=== PATIENT | male | born 1970 | race Caucasian/White ===

== ENCOUNTER → 2023-08-01 | Day surgery (SDC) | payer BC ==
[~2023-08-01] MED LIST: Ketamine 200 MG/20 ML MDV ONE; Lactated Ringers 1,000 ML IV SCH; Midazolam 1 MG/ML 2 ML SDV ONE; Phenylephrine 1% 10 MG/ML SDV ONE; Propofol 200 MG/20 ML SDV ONE; fentaNYL 50 MCG/ML SDV ONE
== END ==
LOC: CC.SDS 10:50
PROVIDERS: ATTEND Family Medicine
DX: D12.5 Benign neoplasm of sigmoid colon (principal); K63.5 Polyp of colon; K21.9 Gastro-esophageal reflux disease without esophagitis; I10 Essential (primary) hypertension; K59.00 Constipation, unspecified; Z86.16 Personal history of COVID-19; Z79.899 Other long term (current) drug therapy
CPT/HCPCS: 00811; J2250; J2371; J2704; J3010; J3490; J7120

== ENCOUNTER 2025-04-24 17:28 | Emergency (ER) | payer BC ==
[2025-04-24] MEDS: Take Home: Cephalexin 500 MG Cap, 6 Cap Pack PO ONE (18:06)
[2025-04-24] MEDS: Diphtheria,Pertussis(Acell),Tetanus Vaccine 0.5 ML Syringe IM ONE (18:06)
== END 2025-04-24 18:28 | disposition home or self-care (01) ==
LOC: CC.ED 17:28
DX: S01.81XA Laceration without foreign body of other part of head, initial encounter (principal); I10 Essential (primary) hypertension; Z79.899 Other long term (current) drug therapy; Z79.84 Long term (current) use of oral hypoglycemic drugs; Z23 Encounter for immunization; W01.198A Fall on same level from slipping, tripping and stumbling with subsequent striking against other object, initial encounter; Y93.89 Activity, other specified
CPT/HCPCS: 12011; 70450; 70486; 90471; 90715; 99284-25; A9270-GY